=== PATIENT | male | born 1950 ===

== ENCOUNTER 2018-03-07 22:09 | Emergency (ER) | payer MEDICARE ==
[2018-03-07 22:19] VITALS: TEMP 100
[2018-03-08 00:14] LABS: BASO % 0.4 % (0.0-2.0); EOS # 0.1 K/uL (0.0-0.7); EOS % 0.9 % (0.0-4.0); HEMOGLOBIN 12.7 g/dL (12.0-18.0); LYMPH # 1.1 K/uL (1.0-4.3); LYMPH % 9.7 % (20.0-40.0); MEAN CELL VOLUME 89.7 fl (80.0-94.0); MEAN CORPUSCULAR HGB CONC 32.3 g/dL (33.0-37.0); MEAN PLATELET VOLUME 9.7 fl (7.2-11.7); MONO # 1.2 K/uL (0.0-0.8); MONO % 9.8 % (0.0-10.0); NEUT # 9.3 K/uL (1.8-7.0); NEUT % 79.2 % (50.0-75.0); PLATELET COUNT 218 K/uL (130-400); RBC 4.38 Mil/uL (4.40-5.90); RED CELL DISTRIBUTION WIDTH 13.3 % (11.5-14.5); WHITE BLOOD COUNT 11.8 K/uL (4.8-10.8)
[2018-03-08 00:23] LABS: ALB/GLOB RATIO 1.1 (1.0-2.1); ALBUMIN 3.8 g/dL (3.5-5.0); ALT/SGPT 26 U/L (21-72); AST/SGOT 17 U/L (17-59); BLOOD UREA NITROGEN 14 mg/dl (9-20); CALCIUM 9.1 mg/dL (8.4-10.2); GFR NON-AFRICAN AMERICAN > 60
--- NOTE | 2018-03-08 00:45 | ED PDOC ---
HPI: Male Pain Time Seen by Provider: 03/07/18 22:47 Chief Complaint (Nursing): Male Genitourinary Chief Complaint (Provider): Male Genitourinary History Per: Patient History/Exam Limitations: no limitations Onset/Duration Of Symptoms: Gradual (x2 days) Current Symptoms Are (Timing): Still Present Additional Complaint(s): 67 year old male presents to ED with a complaint of right-sided testicular pain. Patient report he was lifting a heavy object yesterday then noticed swelling and hardness to affect area. He denies any abdominal pain, nausea, vomiting, or urinary complaints. Patient took a Perocet tablet given to him by a family member and reports mild improvement, rating pain 4/10. PMD: none provided Past Medical History Reviewed: Historical Data, Nursing Documentation, Vital Signs Vital Signs: Last Vital Signs Temp 100 F H 03/07/18 22:19 Pulse 89 03/07/18 22:19 Resp 16 03/07/18 22:19 BP 161/86 H 03/07/18 22:19 Pulse Ox 96 03/07/18 22:19 - Medical History PMH: Diabetes, HTN - Surgical History Surgical History: Denies: No Surg Hx Other surgeries: prostate - Family History Family History: States: Unknown Family Hx - Home Medications Home Medications: Ambulatory Orders Medication Instructions Recorded Ciprofloxacin/Ciprofloxa HCl 500 mg PO Q12 #14 tab 03/08/18 [Ciprofloxacin] traMADol [Ultram] 50 mg PO Q6 PRN #12 tab 03/08/18 - Allergies Allergies/Adverse Reactions: Allergies Allergy/AdvReac Type Severity Reaction Status Date / Time No Known Allergies Allergy Verified 03/07/18 22:29 Review of Systems ROS Statement: Except As Marked, All Systems Reviewed And Found Negative Gastrointestinal: Negative for: Nausea, Vomiting, Abdominal Pain Genitourinary Male: Positive for: Scrotal Pain (right-sided with swelling and firmness). Negative for: Dysuria, Incontinence, Hematuria Physical Exam - Reviewed Nursing Documentation Reviewed: Yes Vital Signs Reviewed: Yes - Physical Exam Appears: Positive for: Non-toxic, No Acute Distress Head Exam: Positive for: ATRAUMATIC, NORMAL INSPECTION, NORMOCEPHALIC Skin: Positive for: Normal Color Cardiovascular/Chest: Positive for: Regular Rate, Rhythm Respiratory: Positive for: Normal Breath Sounds. Negative for: Respiratory Distress Gastrointestinal/Abdominal: Positive for: Normal Exam, Soft. Negative for: Tenderness Male Genital Exam: Positive for: testicular tenderness (R) (with firmness). Negative for: testicular tenderness (L) Extremity: Positive for: Normal ROM (upper/lower) Neurologic/Psych: Positive for: Alert, Oriented. Negative for: Motor/Sensory Deficits - Laboratory Results Result Diagrams: 03/07/18 23:59 03/07/18 23:59 - ECG O2 Sat by Pulse Oximetry: 96 (RA) Pulse Ox Interpretation: Normal Medical Decision Making Medical Decision Making: Initial Impression: 67 year old male with right testicular pain. Initial Plan: * Labs * Toradol 15mg IVP * US testes duplex Time: 135 --US testes duplex Findings: Real-time ultrasound imaging of the testicles and scrotum was performed. The right testicle measures 4.3 x 1.8 x 4.3 cm. There is a large complex mass in the region of the right epididymis measuring 5.2 x 2.8 x 4.6 cm. There is significant surrounding vascularity around this lesion. The left testicle measures 4.1 x 2.6 x 2.6 cm. The testicles demonstrate normal echo texture and echogenicity. Normal color Doppler flow and arterial waveforms are seen bilaterally. No fluid collections are seen. Impression: 1. Large complex mass in the region of the right epididymis, with significant surrounding vascularity. The findings are most suspicious for a large complex abscess, although a hematoma could also have this appearance. Follow-up is recommended as clinically indicated. 2. The testicles appear grossly unremarkable. Time: 221 --Spoke to interpreting radiologist regarding US results. Given acute nature of onset, more compatible with hematoma as patient is afebrile and has normal WBC. Patient is medically stable for discharge home and advised to follow up with a urologist. UA reviewed: possible UTI. Will treat with Rx for Cipro. There is agreement to discharge plan. Return if symptoms persist or worsen. Clinical Impression: Hematoma of testis ----- Scribe Attestation: Documented by Maureen Minor, acting as a scribe for Aman Webster MD. Provider Scribe Attestation: All medical record entries made by the Scribe were at my direction and personal ly dictated by me. I have reviewed the chart and agree that the record accurately reflects my personal performance of the history, physical exam, medical decision making, and the department course for this patient. I have also personally directed, reviewed, and agree with the discharge instructions and disposition. Disposition - Clinical Impression Clinical Impression: Hematoma of testis - Patient ED Disposition Is Patient to be Admitted: No Counseled Patient/Family Regarding: Studies Performed, Diagnosis, Need For Followup, Rx Given - Disposition Referrals: Nikolai Shahid MD [Medical Doctor] - Disposition: Routine/Home Disposition Time: 02:22 Condition: STABLE Prescriptions: Ciprofloxacin/Ciprofloxa HCl [Ciprofloxacin] 500 mg PO Q12 #14 tab traMADol [Ultram] 50 mg PO Q6 PRN #12 tab PRN Reason: testicular pain Instructions: Testicular Injury Forms: [facility] (Portuguese) Print Language: YI
[2018-03-08 01:58] LABS: URINE BILIRUBIN NEGATIVE (NEGATIVE); URINE BLOOD NEGATIVE (NEGATIVE); URINE CLARITY SLIGHTY-CLOUDY (Clear); URINE COLOR YELLOW (YELLOW); URINE GLUCOSE (UA) >=500 mg/dL (Normal); URINE LEUKOCYTE ESTERASE NEG Leu/uL (Negative); URINE PROTEIN NEGATIVE (NEGATIVE); URINE UROBILINOGEN 0.2-1.0 mg/dL (0.2-1.0)
[2018-03-08 02:59] VITALS: BP 150/84; PULSE 80; RESP 18; O2SAT 99
[2018-03-08 03:18] LABS: BANDS 1 % (0-2); BASOPHIL 1 % (0-2); LYMPHOCYTE 9 % (20-50); MONOCYTE 7 % (0-10); NEUTROPHIL 82 % (42-75); PLATELET ESTIMATE NORMAL (NORMAL); TOTAL CELLS COUNTED 100
--- NOTE | 2018-03-08 14:29 | US ---
Date of service: 03/08/2018 HISTORY: testicular pain TECHNIQUE: Realtime sonography through the scrotum with color and doppler flow. COMPARISON: None Available. FINDINGS: RIGHT TESTICLE: Measures 1.8 x 4.3 x 4.3 cm. Normal echotexture and flow. RIGHT EPIDIDYMIS: Epididymal head measures 2.8 x 4.6 x 5.2 cm. Complex mass with solid and cystic components and septations. Rim enhancement noted. LEFT TESTICLE: Measures 2.6 x 2.6 x 4.1 cm. Normal echotexture and flow. LEFT EPIDIDYMIS: Epididymal head measures 0.8 x 2.6 cm. Grossly unremarkable appearance with normal flow. HYDROCELE: None. VARICOCELE: None. OTHER FINDINGS: None. IMPRESSION: Markedly enlarged hypervascular right epididymis consistent with acute epididymitis. Follow-up to resolution recommended. No evidence of testicular torsion, mass or other pathologic process. Concordant results (preliminary interpretation) provided by [facility]. Procedure Completed: 00:24 Preliminary Report: Dictated and Authenticated: 01:32. Final Interpretation: 14:25.
== END 2018-03-08 02:40 | disposition home or self-care (01) ==
LOC: H.ER 22:09
DX: N50.1 Vascular disorders of male genital organs (principal); E11.9 Type 2 diabetes mellitus without complications; I10 Essential (primary) hypertension; N50.811 Right testicular pain
CPT/HCPCS: 80053; 81003; 85025; 93975; 96374; 99283; J1885

== ENCOUNTER 2018-03-11 19:51 | Observation (INO) | payer MEDICARE ==
--- NOTE | 2018-03-11 20:34 | ED PDOC ---
HPI: Male Pain Time Seen by Provider: 03/11/18 20:16 Chief Complaint (Nursing): Male Genitourinary Chief Complaint (Provider): right scrotal pain History Per: Patient, Family History/Exam Limitations: no limitations Onset/Duration Of Symptoms: Days (5) Current Symptoms Are (Timing): Still Present Quality Of Discomfort: "Pain" Additional Complaint(s): 67 y/o male history of type II diabetes, hypertension presents for evaluation of ongoing right testicular pain/swelling x 5 days. Patient states symptoms started after lifting a heavy object, and gradually got worse. Patient was evaluated in ED on Friday and diagnosed with a scrotal hematoma and given Tramadol and Cipro but patient states pain persists. Patient was evaluated by his Urologist, Dr. Marinelli today and to ED to rule out abscess. Denies fever, nausea/vomiting, abdominal pain, dysuria, hematuria, penile pain/discharge. PMD: Dr. Jagdeep German ([place]) Past Medical History Reviewed: Historical Data, Nursing Documentation, Vital Signs Vital Signs: Last Vital Signs Temp 99.3 F 03/11/18 20:03 Pulse 76 03/11/18 20:03 Resp 16 03/11/18 20:03 BP 183/92 H 03/11/18 20:03 Pulse Ox 98 03/11/18 20:03 - Medical History PMH: Diabetes, HTN - Family History Family History: States: Unknown Family Hx - Living Arrangements Living Arrangements: With Family - Home Medications Home Medications: Ambulatory Orders Medication Instructions Recorded Ciprofloxacin/Ciprofloxa HCl 500 mg PO Q12 #14 tab 03/08/18 [Ciprofloxacin] traMADol [Ultram] 50 mg PO Q6 PRN #12 tab 03/08/18 - Allergies Allergies/Adverse Reactions: Allergies Allergy/AdvReac Type Severity Reaction Status Date / Time No Known Allergies Allergy Verified 03/11/18 20:03 Review of Systems ROS Statement: Except As Marked, All Systems Reviewed And Found Negative Genitourinary Male: Positive for: Scrotal Pain (right) Physical Exam - Reviewed Nursing Documentation Reviewed: Yes Vital Signs Reviewed: Yes - Physical Exam Appears: Positive for: Well, Non-toxic, No Acute Distress Head Exam: Positive for: ATRAUMATIC, NORMAL INSPECTION, NORMOCEPHALIC Skin: Positive for: Normal Color Eye Exam: Positive for: Normal appearance ENT: Positive for: Normal ENT Inspection Cardiovascular/Chest: Positive for: Regular Rate, Rhythm Respiratory: Positive for: Normal Breath Sounds Gastrointestinal/Abdominal: Positive for: Normal Exam Male Genital Exam: Positive for: scrotum tenderness (R) (firm, erythematous/edematous right scrotum with tenderness to palpation. 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 Negative for: urethral discharge Back: Positive for: Normal Inspection Extremity: Positive for: Normal ROM Neurologic/Psych: Positive for: Alert, Oriented (x3) - Laboratory Results Result Diagrams: 03/11/18 21:11 03/11/18 21:11 - ECG ECG: Positive for: Viewed By Me (reviewed by ED attending) ECG Rhythm: Positive for: Sinus Rhythm O2 Sat by Pulse Oximetry: 98 - Radiology X-Ray: Viewed By Me X-Ray Interpretation: No Acute Disease - Progress ED Course And Treament: labs, u/s, urine, IV toradol USArad u/s impression: Heterogenous right testicle with increased vascularity, compatible with orchitis. 4cm right epididymal area complex structure, may represent an abscess Case discussed with Dr. Marinelli; recommends admission for I&D in am. Recommends NPO, IV rocephin, Case discussed with Dr. Morrissey for admission Disposition - Clinical Impression Clinical Impression: Scrotal abscess, Orchitis, Hyperglycemia - Patient ED Disposition Is Patient to be Admitted: Yes - Disposition Disposition Time: 00:30 Condition: FAIR
[2018-03-11 21:17] LABS: BASO # 0.1 K/uL (0.0-0.2); EOS # 0.1 K/uL (0.0-0.7); EOS % 1.6 % (0.0-4.0); HEMOGLOBIN 13.4 g/dL (12.0-18.0); LYMPH # 1.3 K/uL (1.0-4.3); LYMPH % 15.5 % (20.0-40.0); MEAN CELL VOLUME 89.4 fl (80.0-94.0); MEAN CORPUSCULAR HEMOGLOBIN 29.6 pg (27.0-31.0); MEAN CORPUSCULAR HGB CONC 33.1 g/dL (33.0-37.0); MEAN PLATELET VOLUME 9.4 fl (7.2-11.7); MONO # 1.2 K/uL (0.0-0.8); MONO % 14.5 % (0.0-10.0); NEUT # 5.8 K/uL (1.8-7.0); NEUT % 67.4 % (50.0-75.0); RBC 4.52 Mil/uL (4.40-5.90); RED CELL DISTRIBUTION WIDTH 13.3 % (11.5-14.5); WHITE BLOOD COUNT 8.6 K/uL (4.8-10.8)
[2018-03-11 21:45] LABS: ALBUMIN 4.1 g/dL (3.5-5.0); ALT/SGPT 97 U/L (21-72); AST/SGOT 100 U/L (17-59); BLOOD UREA NITROGEN 17 mg/dl (9-20); CALCIUM 9.9 mg/dL (8.4-10.2); GFR NON-AFRICAN AMERICAN > 60
[2018-03-12] MEDS ORDERED: cefTRIAXone 2 GM in Sodium Chloride 0.9% 100 ML IVPB STA (00:22)
[2018-03-12] MEDS ORDERED: Sodium Chloride 0.9% 1,000 ML IV STA (00:29)
[2018-03-12 00:46] LABS: SQUAMOUS EPITHIAL < 1 /hpf (0-5); URINE AMORPHOUS SEDIMENT RARE /ul (<OCC); URINE BILIRUBIN NEGATIVE (NEGATIVE); URINE BLOOD NEGATIVE (NEGATIVE); URINE CLARITY SLIGHTY-CLOUDY (Clear); URINE COLOR YELLOW (YELLOW); URINE GLUCOSE (UA) >=500 mg/dL (Normal); URINE LEUKOCYTE ESTERASE NEG Leu/uL (Negative); URINE PROTEIN NEGATIVE (NEGATIVE); URINE UROBILINOGEN 0.2-1.0 mg/dL (0.2-1.0)
[2018-03-12 01:39] LABS: INR 1.1; PROTHROMBIN TIME 12.8 Seconds (9.8-13.1)
[2018-03-12 01:41] LABS: PARTIAL THROMBOPLASTIN TIME 32.2 Seconds (25.6-37.1)
[2018-03-12] MEDS ORDERED: Propofol 10 mg/ml Inj (20 ML) ONE (07:07)
[2018-03-12] MEDS ORDERED: Ketamine 50 mg/ml Inj (10 ml) ONE (07:07)
[2018-03-12] MEDS ORDERED: Succinylcholine 200 mg/10 ml Inj IV ONE (07:07)
[2018-03-12] MEDS ORDERED: Lidocaine 4% (Laryng-O-Jet) Kit MM ONE (07:08)
--- NOTE | 2018-03-12 07:09 | CARD ---
APPROVED REPORT Date of service: 03/12/2018 EKG Measurement Heart [id number] <Conclusion> Sinus bradycardia Baseline artifact, cannot rule out T wave abnormality Abnormal ECG
[2018-03-12] MEDS ORDERED: Sodium Chloride 0.9% 10 ML IV ONE (07:10)
[2018-03-12] MEDS ORDERED: Lactated Ringer's 1,000 ML IV ONE (07:35)
--- NOTE | 2018-03-12 08:25 | CP.PCM.HP ---
<Patrizia Ruff - Last Filed: 03/12/18 11:53> History of Present Illness - History of Present Illness History of Present Illness: 67 y/o male history of type II diabetes, hypertension presents for evaluation of ongoing right testicular pain/swelling x 5 days. Patient states symptoms started after lifting a heavy object, and gradually got worse. Patient was evaluated in ED on Friday and diagnosed with a scrotal hematoma and given Tramadol and Cipro but patient states pain and edema is worse. Patient was evaluated by his Urologist yesterday, Dr. Marinelli and sent him to ED to rule out abscess. Denies fever, chills, nausea/vomiting, abdominal pain, dysuria, hematuria, penile pain/discharge. PMD: Dr. Mireles Present on Admission - Present on Admission Any Indicators Present on Admission: No Review of Systems - Review of Systems All systems: reviewed and no additional remarkable complaints except (HPI) Past Patient History - Past Social History Smoking Status: Unknown If Ever Smoked - CARDIAC Hx Cardiac Disorders: Yes - ENDOCRINE/METABOLIC Hx Endocrine Disorders: Yes - PSYCHIATRIC Hx Substance Use: No - ANESTHESIA Hx Anesthesia: No Meds Allergies/Adverse Reactions: Allergies Allergy/AdvReac Type Severity Reaction Status Date / Time No Known Allergies Allergy Verified 03/11/18 20:03 Physical Exam - Constitutional Appears: No Acute Distress - Head Exam Head Exam: NORMAL INSPECTION - Respiratory Exam Respiratory Exam: Clear to Auscultation Bilateral - Cardiovascular Exam Cardiovascular Exam: REGULAR RHYTHM, +S1, +S2 - GI/Abdominal Exam GI & Abdominal Exam: Normal Bowel Sounds, Soft. absent: Distended, Guarding - Exam Exam: Scrotal Swelling, Testicular Tenderness. absent: Uretheral Discharge External exam: absent: Lesions Additional comments: firm, erythematous/edematous right scrotum with tenderness to palpation. No fluctuance noted. - Extremities Exam Extremities exam: Negative for: pedal edema - Neurological Exam Neurological exam: Alert, Oriented x3 - Skin Skin Exam: Dry, Warm Results - Vital Signs Recent Vital Signs: Last Vital Signs Temp 99.3 F 03/12/18 07:31 Pulse 68 03/12/18 07:31 Resp 18 03/12/18 07:31 BP 129/77 03/12/18 07:31 Pulse Ox 97 03/12/18 07:31 - Labs Result Diagrams: 03/11/18 21:11 03/11/18 21:11 Labs: Laboratory Results - last 24 hr 03/11/18 03/11/18 03/11/18 21:11 21:11 21:11 WBC 8.6 RBC 4.52 Hgb 13.4 Hct 40.4 MCV 89.4 MCH 29.6 MCHC 33.1 RDW 13.3 Plt Count 247 MPV 9.4 Neut % (Auto) 67.4 Lymph % (Auto) 15.5 L [place] % (Auto) 14.5 H Eos % (Auto) 1.6 Baso % (Auto) 1.0 Neut # (Auto) 5.8 Lymph # (Auto) 1.3 [place] # (Auto) 1.2 H Eos # (Auto) 0.1 Baso # (Auto) 0.1 PT INR APTT Sodium 138 Potassium 4.5 Chloride 98 Carbon Dioxide 30 Anion Gap 15 BUN 17 Creatinine 1.0 Est GFR ( Amer) > 60 Est GFR (Non-Af Amer) > 60 Random Glucose 230 H Lactic Acid 1.3 Calcium 9.9 Total Bilirubin 0.8 AST 100 H D ALT 97 H D Alkaline Phosphatase 107 Total Protein 8.2 Albumin 4.1 Globulin 4.2 H Albumin/Globulin Ratio 1.0 Urine Color Urine Clarity Urine pH Ur Specific [place] Urine Protein Urine Glucose (UA) Urine Ketones Urine Blood Urine Nitrate Urine Bilirubin Urine Urobilinogen Ur Leukocyte Esterase Urine RBC (Auto) Ur Squamous Epith Cells Amorphous Sediment Blood Type Antibody Screen BBK History Checked 03/12/18 03/12/18 03/12/18 00:30 01:20 01:25 WBC RBC Hgb Hct MCV MCH MCHC RDW Plt Count MPV Neut % (Auto) Lymph % (Auto) [place] % (Auto) Eos % (Auto) Baso % (Auto) Neut # (Auto) Lymph # (Auto) [place] # (Auto) Eos # (Auto) Baso # (Auto) PT 12.8 INR 1.1 APTT 32.2 Sodium Potassium Chloride Carbon Dioxide Anion Gap BUN Creatinine Est GFR ( Amer) Est GFR (Non-Af Amer) Random Glucose Lactic Acid Calcium Total Bilirubin AST ALT Alkaline Phosphatase Total Protein Albumin Globulin Albumin/Globulin Ratio Urine Color Yellow Urine Clarity Slighty-cloudy Urine pH 6.0 Ur Specific [place] 1.025 Urine Protein Negative Urine Glucose (UA) >=500 Urine Ketones Negative Urine Blood Negative Urine Nitrate Negative Urine Bilirubin Negative Urine Urobilinogen 0.2-1.0 Ur Leukocyte Esterase Neg Urine RBC (Auto) < 1 Ur Squamous Epith Cells < 1 Amorphous Sediment Rare H Blood Type O POSITIVE Antibody Screen Negative BBK History Checked No verified bt Assessment & Plan - Assessment and Plan (Free Text) Assessment: 67 y/o male history of type II diabetes and hypertension admitted with scrotal abscess, for possible I&D today Plan: - VSS, afebrile - NPO - labs reviewed, WBC wnl - urology on board Dr Marinelli - for OR this morning - resume home meds - rest of plan as ordered Case seen and examined with Dr Morrissey. <Marlon Morrissey - Last Filed: 03/14/18 08:17> Results - Vital Signs Recent Vital Signs: Last Vital Signs Temp 98.3 F 03/13/18 11:00 Pulse 60 03/13/18 11:00 Resp 20 03/13/18 11:00 BP 153/81 H 03/13/18 11:00 Pulse Ox 95 03/13/18 11:00 - Labs Result Diagrams: 03/13/18 05:25 03/13/18 05:25 Labs: Laboratory Results - last 24 hr 03/13/18 11:30 POC Glucose (mg/dL) 199 H Assessment & Plan - Assessment and Plan (Free Text) Assessment: Patient was personally seen and examined by me in rounds with residents. Available labs and diagnostic data reviewed. Case, Patient's condition and management plan discussed with residents in rounds. Agree with resident's progress note. Plan: As ordered.
--- NOTE | 2018-03-12 08:44 | RAD ---
Date of service: 03/12/2018 HISTORY: admit COMPARISON: No prior. FINDINGS: LUNGS: No active pulmonary disease. PLEURA: No significant pleural effusion identified, no pneumothorax apparent. CARDIOVASCULAR: No aortic atherosclerotic calcification present. Normal cardiac size. No pulmonary vascular congestion. OSSEOUS STRUCTURES: No significant abnormalities. VISUALIZED UPPER ABDOMEN: Normal. OTHER FINDINGS: None. IMPRESSION: No acute cardiopulmonary disease appreciated.
[2018-03-12] MEDS ORDERED: [UNRECOGNIZED DRUG - OTHER] PO SCH (09:00)
--- NOTE | 2018-03-12 10:43 | US ---
Date of service: 03/11/2018 HISTORY: right scortal pain/swelling TECHNIQUE: Realtime sonography through the scrotum with color and doppler flow. COMPARISON: [id number]. FINDINGS: RIGHT TESTICLE: Measures 2 x 3.4 x 4.6 cm. Normal echotexture, I increase flow identified on the prior study appears to have diminished. RIGHT EPIDIDYMIS: Epididymal head measures 1.9 x 3.9 x 4.3 cm. New large dominant heterogeneous and hypervascular consistent with an acute inflammatory process. This has diminished in size compared to the prior study. LEFT TESTICLE: Measures 2.1 x 2.6 x 4.7 cm. Normal echotexture and flow. LEFT EPIDIDYMIS: Epididymal head measures 0.5 x 0.8 x 1.2 cm. Grossly unremarkable appearance with normal flow. HYDROCELE: None. VARICOCELE: None. OTHER FINDINGS: None. IMPRESSION: Persistent right epidural mass/epididymitis decreased in size compared to the prior study. Hypervascular right testicle identified previously has diminished with respect to vascularity. Concordant findings (preliminary report) provided by [facility].
--- NOTE | 2018-03-12 14:29 | OP ---
PROCEDURE DATE: 03/12/2018 PREOPERATIVE DIAGNOSIS: Right scrotal abscess. POSTOPERATIVE DIAGNOSIS: Right scrotal abscess. PROCEDURE PERFORMED: Incision and drainage of right scrotal abscess. SURGEON: Diana Marinelli MD DESCRIPTION OF PROCEDURE: The patient was placed on the operating table in a supine position, given general anesthesia. The area of the groin was prepped. At this time, I made an incision over the large swelling on the right hemiscrotum. As I then began to dissect, the tunica was very thickened. I opened up the tunica and there was this yellow, pus-like material that drained from the area consistent with the ultrasound findings of a 4 x 3 cm pocket. I digitally explored it. There were no other areas where this abscess cavity tracked. I irrigated with multiple syringes of fluid. Once it was clear, I cauterized heavily the edge of the tunica and then I replaced the testicle back into the scrotal cavity, cauterized some minimal bleeders that were there and then I left a 0.5-inch [place] drain exiting through a separate stab wound incision into the lower scrotum and closed the wound site in the two-layer manner using 3-0 chromic suture. Blood loss was minimal. The patient then was taken from the operating room in good condition. Diana Marinelli MD
[2018-03-13 00:21] VITALS: RESP 20
[2018-03-13] MEDS ORDERED: cefTRIAXone 2 GM in Sodium Chloride 0.9% 100 ML IVPB SCH (02:00)
[2018-03-13 04:14] VITALS: TEMP 98.3
[2018-03-13 06:32] LABS: BASO # 0.1 K/uL (0.0-0.2); BASO % 0.7 % (0.0-2.0); EOS # 0.3 K/uL (0.0-0.7); HEMOGLOBIN 12.1 g/dL (12.0-18.0); LYMPH % 27.9 % (20.0-40.0); MEAN CELL VOLUME 88.5 fl (80.0-94.0); MEAN CORPUSCULAR HEMOGLOBIN 29.2 pg (27.0-31.0); MEAN PLATELET VOLUME 9.4 fl (7.2-11.7); MONO # 1.2 K/uL (0.0-0.8); MONO % 16.3 % (0.0-10.0); NEUT # 3.7 K/uL (1.8-7.0); NEUT % 51.1 % (50.0-75.0); NRBC % 0.1 % (0.0-0.0); RBC 4.13 Mil/uL (4.40-5.90); RED CELL DISTRIBUTION WIDTH 12.9 % (11.5-14.5); WHITE BLOOD COUNT 7.2 K/uL (4.8-10.8)
[2018-03-13 06:42] LABS: BLOOD UREA NITROGEN 15 mg/dl (9-20); CALCIUM 9.3 mg/dL (8.4-10.2); GFR NON-AFRICAN AMERICAN > 60
[2018-03-13 06:43] LABS: ALB/GLOB RATIO 0.9 (1.0-2.1); ALBUMIN 3.3 g/dL (3.5-5.0); ALT/SGPT 69 U/L (21-72); AST/SGOT 45 U/L (17-59)
--- NOTE | 2018-03-13 07:41 | CP.PCM.PN ---
<Patrizia Ruff - Last Filed: 03/13/18 09:17> Subjective - Date & Time of Evaluation Date of Evaluation: 03/13/18 Time of Evaluation: 07:41 - Subjective Subjective: patient seen and examined today with Dr Morrissey s/p R scrotal abscess I&D yesterday, doing well, no pain Afebrile, VSS Objective - Vital Signs/Intake and Output Vital Signs (last 24 hours): Temp Pulse Resp BP Pulse Ox 98.3 F 61 20 135/73 95 03/13/18 03:00 03/13/18 03:00 03/13/18 03:00 03/13/18 03:00 03/13/18 03:00 - Medications Medications: Current Medications Acetaminophen (Tylenol 325mg Tab) 650 mg PO Q4 PRN PRN Reason: Pain, moderate (4-7) Home Med (Patient Own Control [Patient Own Control]) 1 tab PO DAILY [facility] Ceftriaxone Sodium 2 gm/ (Sodium Chloride) 100 mls @ 100 mls/hr IVPB DAILY@0200 [facility]; Protocol Last Admin: 03/13/18 01:59 Dose: 100 mls/hr Ketorolac Tromethamine (Toradol) 15 mg IVP Q6 PRN PRN Reason: Pain, moderate (4-7) Last Admin: 03/12/18 23:12 Dose: 15 mg Lisinopril (Zestril) 20 mg PO DAILY [facility] Last Admin: 03/12/18 21:14 Dose: 20 mg Metformin HCl (Glucophage) 850 mg PO DAILYWM [facility] - Labs Labs: 03/13/18 05:25 03/13/18 05:25 PT 12.8 Seconds (9.8-13.1) 03/12/18 01:20 INR 1.1 03/12/18 01:20 APTT 32.2 Seconds (25.6-37.1) 03/12/18 01:20 - Constitutional Appears: No Acute Distress - Head Exam Head Exam: NORMAL INSPECTION - Respiratory Exam Respiratory Exam: Clear to Ausculation Bilateral - Cardiovascular Exam Cardiovascular Exam: REGULAR RHYTHM, +S1, +S2 - GI/Abdominal Exam GI & Abdominal Exam: Soft. absent: Distended, Tenderness - Exam Additional comments: Dressing clean and dry, some hardness noted on scrotum, no drainage - Extremities Exam Extremities Exam: absent: Pedal Edema - Neurological Exam Neurological Exam: Alert, Oriented x3 - Skin Skin Exam: Dry, Warm Assessment and Plan - Assessment and Plan (Free Text) Assessment: 67 y/o male history of type II diabetes and hypertension admitted with scrotal abscess, s/p I&D day 1. Plan: - VSS, afebrile - labs reviewed, WBC wnl - urology on board Dr Marinelli, input appreciated - continue IV abx - continue home meds - pain meds - f/u cultures - rest of plan as ordered <Morrissey,Marlon K - Last Filed: 03/14/18 08:14> Objective - Vital Signs/Intake and Output Vital Signs (last 24 hours): Temp Pulse Resp BP Pulse Ox 98.3 F 60 20 153/81 H 95 03/13/18 11:00 03/13/18 11:00 03/13/18 11:00 03/13/18 11:00 03/13/18 11:00 - Labs Labs: 03/13/18 05:25 03/13/18 05:25 PT 12.8 Seconds (9.8-13.1) 03/12/18 01:20 INR 1.1 03/12/18 01:20 APTT 32.2 Seconds (25.6-37.1) 03/12/18 01:20 Assessment and Plan - Assessment and Plan (Free Text) Assessment: Patient was personally seen and examined by me in rounds with residents. Available labs and diagnostic data reviewed. Case, Patient's condition and management plan discussed with residents in rounds. Agree with resident's progress note. Plan: As ordered.
[2018-03-13 11:13] VITALS: BP 153/81; PULSE 60; O2SAT 95
== END 2018-03-13 14:48 | disposition home or self-care (01) ==
LOC: H.ER 19:51 → INTOOBSV 03-12 00:35 → H.ERHOLD 03-12 00:35 → H.MEDSURG1 03-12 12:31
PROVIDERS: ADMIT Internal Medicine; ATTEND Internal Medicine
DX: N49.2 Inflammatory disorders of scrotum (principal); E11.65 Type 2 diabetes mellitus with hyperglycemia; I10 Essential (primary) hypertension
CPT/HCPCS: 36415; 55899; 71045; 80053; 81003; 82948; 83605; 85025; 85610; 85730; 86850; 86900; 87040; 88304; 93005; 93975; 96365; 99284; G0378; J0330; J0696; J1170; J1885; J2001; J2405; J2704; J3010; J7030; J7120